=== PATIENT | female | born 1970 | race Caucasian/White ===

== ENCOUNTER → 2016-12-15 | Outpatient (CLI) | payer OTHER ==
--- NOTE | 2016-12-15 23:17 | MR ---
EXAMINATION TYPE: MR lumbar spine wo con DATE OF EXAM: 12/15/2016 COMPARISON: NONE HISTORY: Low back pain x3 months TECHNIQUE: Multiplanar, multisequence images of the lumbar spine were acquired. Lumbar vertebra have normal alignment. Disc spaces are fairly normal. There is slight narrowing and d ecreased signal in the L3-4 disc. There is no spinal stenosis. Lumbar nerve roots appear normal. The neural foramina appear widely patent. There is no compression fracture. Sacroiliac joints appear norm al. There is no paraspinal mass. IMPRESSION: Very minimal degenerative disc signal changes at L3-4. Otherwise negative exam.
== END | disposition home or self-care (01) ==
LOC: RADMRIMAIN 18:17
PROVIDERS: ATTEND Nurse Practitioner
DX: M51.16 Intervertebral disc disorders with radiculopathy, lumbar region (principal)
CPT/HCPCS: 72148

== ENCOUNTER → 2018-04-15 | Outpatient (CLI) | payer OTHER ==
--- NOTE | 2018-04-15 20:13 | CONS ---
CONSULTATION DATE OF SERVICE: 04/15/2018. 47-year-old lady has been evaluated in the Sleep Center for obstructive sleep apnea- hypopnea syndrome. HISTORY OF PRESENT ILLNESS/SLEEP WAKE EVALUATION: About 10 years ago the patient was diagnosed with obstructive sleep apnea-hypopnea syndrome but secondary to insurance issues at that time, she was not able to be treated with the CPAP therapy. SLEEP SCHEDULE: Presently, her sleep schedule from our 11 to 1:00 am until 9 or 10 am basically 7 days a week. FALLING ASLEEP: Usually she does not take her more than 30 minutes to fall asleep. No TV in bedroom. DURING SLEEP: She sleeps on the side position usually and in the chair. She snores very loudly with witnessed episodes of stopped breathing during sleep, awakenings with choking, nocturia, grinding, gasping for air. Patient wakes up from sleep up to 4 times with 4 episodes of nocturia. According to her , she has some movements with her lower jaw during the sleep. DURING THE DAY/SLEEP WAKE EVALUATION: In the morning she wakes up tired, falling asleep during the day, has episodes of irritability, depression, sexual dysfunction. [place] Sleepiness Scale significantly increased to 16. PAST MEDICAL HISTORY: Positive for hypertension, diabetes mellitus with peripheral neuropathy, seasonal allergy, possible depression, sinusitis, acid reflux, syndrome of her right low leg. PAST SURGICAL HISTORY: Past surgical is history of tubal ligation, surgery for varicose vein on the right leg. CURRENT MEDICATIONS: low flow oxygen, gabapentin, cetirizine, omega-3, omeprazole, MiraLAX, probiotics, fluticasone, lisinopril, hydrochlorothiazide, montelukast, Atorvastatin. SOCIAL HISTORY: Negative for smoking or using alcohol. FAMILY HISTORY: Hypertension, heart problems, hyperlipidemia, stroke, arthritis, asthma, sinus headaches, acid reflux, diabetes. REVIEW OF SYSTEMS: Multiple awakenings during the sleep. Sleepiness during the day and discomfort into her legs. PHYSICAL EXAM: lady without distress. BP 115/74, HR 81, RR 16, height 5 feet 0 inches, weight 192, body mass index 37.4, temperature 98.2, oxygen saturation on room air 96%, oropharynx extremely low position of soft palate, wide neck 16 inches in circumference. Abdomen slightly obese. Extremities: Neck Supple, no JVD. Thyroid is not palpable. LUNGS Clear to percussion and to auscultation. Good air exchange. No wheezing or rhonchi. HEART S1, S2 regular. No murmurs, gallops, or rubs. ABDOMEN: Obese. Soft and nontender. Bowel sounds are present. No organomegaly appreciated. IT SYSTEMS MANAGER Awake, alert, and oriented X3. Cranial nerves 2 to 7 intact. There is no fasciculation or atrophy. noted. No focal deficits observed. EXTREMITIES: Right leg wider than left leg with some changes of the whole right lower leg. IMPRESSION: 1. Loud snoring, witnessed episodes of stopped breathing during the sleep, low position of soft palate, wide neck, multiple awakenings from sleep with nocturia, excessive daytime sleepiness. 2. History of obstructive sleep apnea diagnosed in another institution about 10 years ago. Obstructive sleep apnea-hypopnea syndrome. 3. Obesity. BMI 37.4. 4. Diabetes mellitus. 5. Peripheral neuropathy. 6. Hypertension. 7. Seasonal allergy. 8. History of sinusitis. 9. Acid reflux. 10.Hyperlipidemia. 11.Status post tubal ligation. 12.Status post lithotripsy. 13.History of syndrome right leg status post surgical treatment. PLAN: 1. Polysomnography for evaluation of patient's breathing during sleep. 2. CPAP/BiPAP titration if sleep study confirms obstructive sleep apnea-hypopnea syndrome. 3. Preferable position during sleep on the side. 4. No driving if patient feels any sleepiness. 5. I will see patient for follow up visit to explain results of testing and following plan. Thank you very much for referring this patient for consultation. Zane Gonzalez MD, PhD, FAASM Diplomat of [employer] Air Reduction Equipment Operator of [facility] [place] MMODL / IJN: [id number] /
== END ==
LOC: SLEEP 14:05
PROVIDERS: ATTEND Internal Medicine
DX: G47.33 Obstructive sleep apnea (adult) (pediatric) (principal); E66.9 Obesity, unspecified; E11.9 Type 2 diabetes mellitus without complications; G62.9 Polyneuropathy, unspecified; I10 Essential (primary) hypertension; K21.9 Gastro-esophageal reflux disease without esophagitis; E78.5 Hyperlipidemia, unspecified; J30.2 Other seasonal allergic rhinitis; Z98.51 Tubal ligation status; Z98.890 Other specified postprocedural states; Z87.09 Personal history of other diseases of the respiratory system; Z99.89 Dependence on other enabling machines and devices; Z68.37 Body mass index [BMI] 37.0-37.9, adult
CPT/HCPCS: 99211

== ENCOUNTER → 2018-07-01 | Outpatient (CLI) | payer OTHER ==
--- NOTE | 2018-07-01 16:17 | PN ---
PROGRESS NOTE DATE OF SERVICE: 07/01/2018 This patient is a 48-year-old lady has been followed in Sleep Center for treatment of obstructive sleep apnea-hypopnea syndrome. Recently patient has been diagnosed with extremely severe obstructive sleep apnea, apnea-hypopnea index 94.1, with oxygen desaturation to 74%. With CPAP her respiration was controlled, and subsequently she received her CPAP unit. This is her first visit after receiving her CPAP unit. She feels better while using her CPAP, sleeping better and feeling better during the day. [place] Sleepiness Scale is 11. Amount of REM sleep was extremely high during the first night of CPAP titration, around 70%. I do not think that I ever saw such a high amount of REM sleep as a REM sleep rebound phenomenon. I checked the patient's CPAP unit. CPAP pressure is 11 cm of water. Usage is 29/30 nights; usage for more than 4 hours is 20/30 nights. Average usage is 5.7 hours. Leak is 42 L/minute, which is in the high range. Apnea-hypopnea index only 1.3, which is absolutely perfect. MEDICATIONS: 1. Tresiba. 2. Gabapentin. 3. Cetirizine. 4. Omeprazole. 5. MiraLAX. 6. Fluticasone. 7. Lisinopril. 8. Hydrochlorothiazide. 9. Montelukast. 10.Atorvastatin. 11.Fluoxetine. PHYSICAL EXAMINATION: GENERAL: A pleasant patient in no distress. VITAL SIGNS: BP 113/63, HR 85, RR 16, weight 192.6, temperature 98.0, oxygen saturation at room air 98%. HEENT: PERRLA, EOMI. Evaluation of oropharynx showed tongue protrudes midline. Low position of soft palate. Mallampati III. NECK: Supple. No JVD. Thyroid is not palpable. LUNGS: Clear to percussion and to auscultation. Good air exchange. No wheezing or rhonchi. HEART: S1, S2 regular. No murmurs, gallops or rubs. ABDOMEN: Obese. EXTREMITIES: No clubbing or cyanosis. SUPERINTENDENT CONCRETE MIXING PLANT: Awake, alert, and oriented X3. Cranial nerves 2 to 7 intact. There is no fasciculation or atrophy. noted. No focal deficits observed. IMPRESSION: 1. Extremely severe obstructive sleep apnea-hypopnea syndrome, fully under control with CPAP. Patient demonstrated good compliance with treatment, benefitting from treatment. 2. Obesity. 3. Diabetes mellitus with peripheral neuropathy. 4. Hypertension. 5. Seasonal allergies. 6. History of sinusitis. 7. Acid reflux. 8. Hyperlipidemia. 9. Status post tubal ligation. 10.Status post lithotripsy. 11.History of syndrome, status post surgical treatment of the right leg. PLAN: 1. Patient will continue to use her CPAP equipment every night. 2. Losing weight. 3. Sleep hygiene with regular time in bed for at least 8 hours. 4. No driving if feeling any sleepiness. 5. We will follow with prescription for all necessary CPAP supplies. 6. Follow-up visit in one year, or earlier if patient has any problems. Thank you very much for allowing me to participate in the management of your patient. Sincerely, Zane Gonzalez MD, PhD, FAASM Diplomat of [employer] Missile Technician of [facility] [place] MMODL / IJN: [id number] /
== END ==
LOC: SLEEP 14:13
PROVIDERS: ATTEND Internal Medicine
DX: G47.33 Obstructive sleep apnea (adult) (pediatric) (principal); E66.9 Obesity, unspecified; E11.42 Type 2 diabetes mellitus with diabetic polyneuropathy; I10 Essential (primary) hypertension; J30.2 Other seasonal allergic rhinitis; K21.9 Gastro-esophageal reflux disease without esophagitis; E78.5 Hyperlipidemia, unspecified; Z87.09 Personal history of other diseases of the respiratory system; Z98.890 Other specified postprocedural states; Z99.89 Dependence on other enabling machines and devices; Z98.51 Tubal ligation status; Z79.899 Other long term (current) drug therapy

== ENCOUNTER → 2019-01-27 | Outpatient (CLI) | payer OTHER ==
--- NOTE | 2019-01-27 13:52 | US ---
EXAMINATION TYPE: US carotid duplex BILAT DATE OF EXAM: 01/27/2019 COMPARISON: zUS 2007 CLINICAL HISTORY: R20.0 RT SIDED NUMBNESS,[id number] PROPTOSIS. EXAM MEASUREMENTS: RIGHT: Peak Systolic Velocity (PSV) cm/sec ----- Right CCA: 104.4 ----- Right ICA: 135.2 ----- Right ECA: 137.2 ICA/CCA ratio: 1.3 RIGHT: End Diastole cm/sec ----- Right CCA: 25.2 ----- Right ICA: 43.0 ----- Right ECA: 18.9 LEFT: Peak Systolic Velocity (PSV) cm/sec ----- Left CCA: 104.4 ----- Left ICA: 115.5 ----- Left ECA: 170.8 ICA/CCA ratio: 36.5 LEFT: End Diastole cm/sec ----- Left CCA: 34.7 ----- Left ICA: 11.6 ----- Left ECA: 1.1 VERTEBRALS (direction of flow): Right Vertebral: Antegrade Left Vertebral: Antegrade Rhythm: Normal Increased peak systolic velocity bilateral common carotid arteries. Grayscale images do not show sign ificant focal plaque at carotid bulb level bilaterally. IMPRESSION: Increased peak systolic velocities, suspect underlying pulmonary hypertension. Correlate clinically. No hemodynamic significant stenosis is clearly seen in either internal carotid artery. Criteria for Assigning % of Stenosis / Diameter reduction (Estimation based on the indirect measurements of the internal carotid artery velocities (ICA PSV). 1. Normal (no stenosis)=ICA PSV < 125 cm/s: ratio < 2.0: ICA EDV<40 cm/s. 2. Less than 50% stenosis=ICA PSV < 125 cm/s: ratio < 2.0: ICA EDV<40 cm/s. 3. 50 to 69% stenosis=ICA PSV of 125 to 230 cm/s: ration 2.0 ? 4.0: ICA EDV 40-100 cm/s. 4. Greater than 70% stenosis to near occlusion= ICA PSV > 230 cm/s: ratio > 4.0: ICA EDV > 100 cm/s. 5. Near occlusion= ICA PSV velocities may be low or undetectable: variable ratio and ICA EDV. 6. Total occlusion=unable to detect flow.
--- NOTE | 2019-01-27 15:12 | MR ---
PRE AND POSTCONTRAST ENHANCED MRI OF THE BRAIN and ORBITS: CLINICAL HISTORY: Proptosis, rt sided numbness CONTRAST: Gadavist 8.5ml. Multiplanar and multispin-echo imaging of the brain and orbits was performed both before and after th e administration of contrast. Origins of the examination are limited by patient motion during the cou rse of the study. The ventricles, basal cisterns and sulci overlying the cerebral convexities are within normal limits. There is no evidence for midline shift or mass effect. Acute intracranial hemorrhage or extra-axial collection is not evident. T2 FLAIR data set that demonstrates approximately 4 foci of increased signal within the deep white ma tter of the left cerebral hemisphere the largest noted within the left frontal verdugo radiata measuri ng 4.5 mm. One or 2 small foci of increased signal seen within the right cerebral hemisphere measurin g up to 3 mm. The findings are nonspecific and may reflect sequela of chronic migraine headaches, vas culitis, Lyme's disease as well as demyelinating disorder and chronic small vessel ischemic change. Following contrast administration, there is no evidence for pathologic enhancement or enhancing mass. The paranasal sinuses and mastoid air cells are well-aerated. The graft evaluation of the orbits demo nstrates bilateral proptosis. There is no evidence for thickening of the extraocular musculature. No intra or extraconal mass identified. Optic nerves are grossly unremarkable. No enhancing mass is dete cted. Nasal septum is deviated from left to right. IMPRESSION: 1. Nonspecific white matter lesions as discussed above. 2. Bilateral proptosis of uncertain etiology.
== END | disposition home or self-care (01) ==
LOC: RADUSWWP 12:22
PROVIDERS: ATTEND Psychiatry & Neurology Neurology
DX: H05.20 Unspecified exophthalmos (principal); R90.82 White matter disease, unspecified; R93.89 Abnormal findings on diagnostic imaging of other specified body structures; R20.0 Anesthesia of skin
CPT/HCPCS: 93880; 70543; 70553; A9585

== ENCOUNTER → 2019-11-28 | Outpatient (CLI) | payer OTHER ==
--- NOTE | 2019-11-28 11:30 | XR ---
EXAMINATION TYPE: XR bone length study DATE OF EXAM: 11/28/2019 COMPARISON: NONE HISTORY: limb length discrepency TECHNIQUE: Limb length measurements are submitted bilaterally. Multiple radiographs of the lower extr emities are obtained with a ruler. FINDINGS: Right femoral length is 39.25 cm while the left femoral length is 40.25 cm. Right tibial le ngth is 30 cm while the left tibial length is 31.5 cm. IMPRESSION: As above
== END | disposition home or self-care (01) ==
LOC: RADXRMAIN 10:23
PROVIDERS: ATTEND Podiatrist
DX: M21.70 Unequal limb length (acquired), unspecified site (principal)
CPT/HCPCS: 77073

== ENCOUNTER → 2020-02-28 | Outpatient (CLI) | payer OTHER | END | disposition home or self-care (01) | LOC: LABWHC1 08:43 | DX: H05.20 Unspecified exophthalmos (principal) | CPT/HCPCS: 36415; 84439; 84443; 84445; 84481 ==

== ENCOUNTER → 2021-04-04 | Outpatient (CLI) | payer OTHER ==
--- NOTE | 2021-04-05 09:13 | SFUN ---
SLEEP CENTER FOLLOW UP NOTE DATE OF SERVICE: 04/04/2021 This 50-year-old lady has been followed in Sleep Center for treatment of obstructive sleep apnea-hypopnea syndrome. Previously I saw the patient in June of 2018 and then, because of the COVID situation, the patient did not come for follow-up visit. She is on treatment with CPAP for extremely severe obstructive sleep apnea-hypopnea syndrome. Recently she did not use her CPAP machine because she needs to replace her CPAP supplies; bad condition of her chamber for humidification. [place] Sleepiness Scale today is increased to 13. I checked her CPAP unit. Pressure is 11 cm of water. The patient did not use it for the last year. MEDICATIONS: 1. Lipitor 40 mg once a day. 2. Ozempic 1.5 mg once a week. 3. Jardiance. 4. Lisinopril 40 mg once a day. 5. Claritin 10 mg once a day. 6. Prozac 40 mg once a day. 7. Actos. PHYSICAL EXAMINATION: GENERAL: Pleasant patient in no distress. VITAL SIGNS: BP 124/84, HR 67, RR 16, height 5 feet 0 inches, weight 154, body mass index , temperature 97.0. Oxygen saturation at room air 99%. HEENT: PERRLA, EOMI, evaluation of oropharynx showed tongue protrudes midline. Low position of soft palate; Mallampati III. NECK: Supple, no JVD. Thyroid is not palpable. LUNGS: Clear to percussion and to auscultation. Good air exchange. No wheezing or rhonchi. HEART: S1, S2 regular. No murmurs, gallops, or rubs. ABDOMEN: Soft and nontender. Bowel sounds are present. No organomegaly appreciated. EXTREMITIES: No clubbing or cyanosis. JOGGLE PRESS OPERATOR: Awake, alert, and oriented X3. Cranial nerves 2 to 7 intact. There is no fasciculation or atrophy. noted. No focal deficits observed. IMPRESSION: 1. Extremely severe obstructive sleep apnea-hypopnea syndrome. CPAP unit needs to have some replacement of the parts, including chamber for the water. 2. Diabetes mellitus with peripheral neuropathy. 3. Hypertension. 4. Seasonal allergies. 5. History of sinusitis. 6. Acid reflux. 7. Hyperlipidemia. 8. Status post tubal ligation. 9. Status post lithotripsy. PLAN: 1. Patient will continue to use PAP equipment every night for the whole night. 2. Sleep hygiene with regular time in bed for at least 7-1/2 to 8 hours. 3. Precautions related to driving. No driving if feeling sleepiness. 4. I will maintain all necessary prescription for PAP supplies including mask, tube, filters. 5. Watching weight. 6. Follow-up visit in 6 months or earlier if patient has any problems. 7. Prescription for all necessary supplies has been written and sent to [facility]. Thank you very much for allowing me to participate in the management of your patient. Sincerely, Zane Gonzalez MD, PhD, FAASM Diplomat of [place] [employer] Sleep Medicine Board of [place] [employer] Dictating Machine Transcriber of [facility] [place] MMODL / LESLIEN: [id number] /
== END | disposition home or self-care (01) ==
LOC: SLEEP 14:29
PROVIDERS: ATTEND Internal Medicine
DX: G47.33 Obstructive sleep apnea (adult) (pediatric) (principal); E11.42 Type 2 diabetes mellitus with diabetic polyneuropathy; J30.1 Allergic rhinitis due to pollen; K21.9 Gastro-esophageal reflux disease without esophagitis; E78.5 Hyperlipidemia, unspecified; Z98.51 Tubal ligation status

== ENCOUNTER → 2021-10-09 | Outpatient (CLI) | payer OTHER ==
--- NOTE | 2021-10-10 14:46 | SFUN ---
SLEEP CENTER FOLLOW UP NOTE DATE OF SERVICE: 10/09/2021 51-year-old lady has been followed in Sleep Center for treatment of obstructive sleep apnea-hypopnea syndrome. The patient continues to use her CPAP equipment getting her CPAP supplies in time. No problems with the machine. [place] Sleepiness Scale today although increased to 14. She feels sleepiness during the day. I checked CPAP unit. Pressure is 11 cm of water. Usage is 24/30 nights and 20/30 nights for more than 4 hours. Average 5.2 hours per night is borderline compliance. Leak is high 66 L/minute but apnea-hypopnea index is totally normal only 1.5. CURRENT MEDICATIONS: Aspirin 81 mg once a day, Jardiance 25 mg once a day, fluoxetine 40 mg once a day, Actos 45 mg once a day, Lipitor 80 mg once a day, Pepcid 20 mg twice a day, Bentyl 20 mg 4 times a day, gabapentin 400 mg 3 times a day, Ozempic weekly. PHYSICAL EXAMINATION: During physical exam patient in no distress BP 107/72, HR 66, RR 14, weight 164.0, which is 10 pounds more than during previous visit. Temperature 97.3, oxygen saturation at room air 99%. Height 5 feet 0 inches. Oropharynx: Low position of soft palate, Mallampati 3. NECK: Supple, no JVD. Thyroid is not palpable. LUNGS: Clear to percussion and to auscultation. Good air exchange. No wheezing or rhonchi. HEART: S1, S2 regular. No murmurs, gallops, or rubs. ABDOMEN: Soft and nontender. Bowel sounds are present. No organomegaly appreciated. EXTREMITIES: No clubbing or cyanosis. WEALTH MANAGEMENT MANAGER: Awake, alert, and oriented X3. Cranial nerves 2 to 7 intact. There is no fasciculation or atrophy. noted. No focal deficits observed. IMPRESSION: 1. Extremely severe obstructive sleep apnea-hypopnea syndrome. The patient demonstrated borderline compliance with treatment benefitting from treatment. Normal respiration on CPAP. 2. Hypertension. 3. Diabetes mellitus with peripheral neuropathy. 4. Seasonal allergy. 5. History of sinusitis. 6. Acid reflux. 7. Hyperlipidemia. 8. Status post tubal ligation. 9. Status post lithotripsy. PLAN: 1. Patient will continue to use PAP equipment every night for the whole night. 2. Sleep hygiene with regular time in bed for at least 7-1/2 to 8 hours. 3. Precautions related to driving. No driving if feeling sleepiness. 4. I will maintain all necessary prescription for PAP supplies including mask, tube, filters. 5. Watching weight. 6. Follow-up visit in 6 months or earlier if patient has any problems. Thank you very much for allowing me to participate in the management of your patient. Sincerely, Zane Gonzalez MD, PhD, FAASM Diplomat of [place] [employer] Sleep Medicine Board of [place] [employer] Medicine Service Operations Manager of [facility] [place] MMODL / IJN: [id number] /
== END | disposition home or self-care (01) ==
LOC: SLEEP 13:11
PROVIDERS: ATTEND Internal Medicine
DX: Z53.9 Procedure and treatment not carried out, unspecified reason (principal)

== ENCOUNTER 2022-09-15 12:39 | Observation (INO) | payer OTHER ==
[2022-09-15 12:55] LABS: Glucose,Whole Blood 146 mg/dL (70-110)
[2022-09-15] MEDS ORDERED: SODIUM CHLORIDE 0.9% 1,000 ML IV STA (12:55)
--- NOTE | 2022-09-15 13:05 | ED ---
General Adult HPI - General Chief complaint: Neuro Symptoms/Deficit Stated complaint: Facial Numbness Time Seen by Provider: 09/15/22 12:46 Source: patient, RN notes reviewed, old records reviewed Mode of arrival: ambulatory - History of Present Illness Initial comments: 52-year-old female presenting with right facial numbness which began at approximately 11:30 AM. She had previous history of Sheth's palsy. She denies limb weakness or numbness. She states that her had noted some slurred speech which began at 12:30, he states this was suicidal and is improving. I do not hear slurred speech on exam. No chest pain, no abdominal pain. - Related Data Allergies Allergy/AdvReac Type Severity Reaction Status Date / Time acetaminophen Allergy Rash/Hives Verified 09/15/22 12:44 [From Darvocet-N] morphine Allergy Rash/Hives Verified 09/15/22 12:44 propoxyphene Allergy Rash/Hives Verified 09/15/22 12:44 [From Darvocet-N] Review of Systems ROS Statement: Those systems with pertinent positive or pertinent negative responses have been documented in the HPI. ROS Other: All systems not noted in ROS Statement are negative. 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 History of Any Multi-Drug Resistant Organisms: None Reported Past Surgical History: No Surgical Hx Reported Past Psychological History: Depression Smoking Status: Never smoker Past Alcohol Use History: None Reported Past Drug Use History: None Reported General Exam General appearance: alert, in no apparent distress Head exam: Present: atraumatic, normocephalic Eye exam: Present: normal appearance, PERRL ENT exam: Present: normal exam Neck exam: Present: normal inspection. Absent: tenderness, meningismus Respiratory exam: Present: normal lung sounds bilaterally. Absent: respiratory distress, wheezes Cardiovascular Exam: Present: regular rate, normal rhythm GI/Abdominal exam: Present: soft. Absent: distended, tenderness, guarding Extremities exam: Present: normal capillary refill Neurological exam: Present: alert, oriented X3, motor sensory deficit (Right- sided facial numbness without weakness, speech is clear, no limb weakness, NIH of 1) Psychiatric exam: Present: normal affect, normal mood Skin exam: Present: warm, dry, intact. Absent: cyanosis, diaphoretic Course Vital Signs 09/15/22 09/15/22 12:41 13:10 Temperature 98.0 F Pulse Rate 75 79 Respiratory 16 18 Rate Blood Pressure 139/86 130/88 O2 Sat by Pulse 99 98 Oximetry EKG Findings - EKG Comments: EKG Findings:: Sinus rhythm rate of 71 OK interval 146, QRS duration 90, QTC [address] segment elevation. Medical Decision Making - Medical Decision Making Was pt. sent in by a medical professional or institution (, PA, ASSISTANT HEAD CASHIER, urgent care, hospital, or long-term...) When possible be specific @ -No Did you speak to anyone other than the patient for history (EMS, parent, family, police, friend...)? What history was obtained from this source @ -No Did you review nursing and triage notes (agree or disagree)? Why? @ -I reviewed and agree with nursing and triage notes Were old charts reviewed (outside hosp., previous admission, EMS record, old EKG, old radiological studies, urgent care reports/EKG's, long-term records)? Report findings @ -No old charts were reviewed Differential Diagnosis (chest pain, altered mental status, abdominal pain women, abdominal pain men, vaginal bleeding, weakness, fever, dyspnea, syncope, headache, dizziness, GI bleed, back pain, seizure, CVA, palpatations, mental h ealth, musculoskeletal)? @ Differential CVA Ischemic stroke, hemorrhagic stroke, brain tumor, atypical migraine, Wernicke's encephalopathy, seizure, multiple sclerosis, meningitis, encephalitis, hypoglycemia, Guillain-Armijo, electrolytes disturbance, myasthenia gravis.... This is not meant to be an all-inclusive list EKG interpreted by me (3pts min.). @ -As above X-rays interpreted by me (1pt min.). @ Chest x-ray no acute cardiopulmonary findings CT interpreted by me (1pt min.). @ CT CTA ordered in the emergency Department no acute findings U/S interpreted by me (1pt. min.). @ -None done What testing was considered but not performed or refused? (CT, X-rays, U/S, labs)? Why? @ -None What meds were considered but not given or refused? Why? @ -None Did you discuss the management of the patient with other professionals (profpat weberonals i.e. , PA, ASSISTANT HEAD CASHIER, lab, RT, psych nurse, social work instructor, nutritional assistant, teacher, aoc director combat plans officer, pillowcase sewer)? Give summary @ -, Sheet Was smoking cessation discussed for >3mins.? @ -No Was critical care preformed (if so, how long)? @ -No Were there social determinants of health that impacted care today? How? (Homelessness, low income, unemployed, alcoholism, drug addiction, trans portation, low edu. Level, literacy, decrease access to med. care, fpc, rehab)? @ -No Was there de-escalation of care discussed even if they declined (Discuss DNR or withdrawal of care, Hospice)? DNR status @ -No What co-morbidities impacted this encounter? (DM, HTN, Smoking, COPD, CAD, Cancer, CVA, ARF, Chemo, Hep., AIDS, mental health diagnosis, sleep apnea, morbid obesity)? @ -[HTN Was patient admitted / discharged? Hospital course, mention meds given and route, prescriptions, significant lab abnormalities, going to OR and other pertinent info. @ -[52-year-old female with right-sided facial numbness and reported slurred speech which is resolved at the time my evaluation, states is improving. This may be TIA or may reflect a Sheth's palsy. She has no limb weakness. Blood pressure is normal. Workup in the emergency Department is unremarkable including CT without contrast, CT angiography. I did discuss case with the on- call stroke intervention physician who does recommend aspirin at this time. Patient not a TPA candidate given improving symptoms and minimal NIH. Undiagnosed new problem with uncertain prognosis? @ -No Drug Therapy requiring intensive monitoring for toxicity (Heparin, Nitro, Insulin, Cardizem)? @ -No Were any procedures done? @ -No Diagnosis/symptom? @ Right facial numbness, CVA Acute, or Chronic, or Acute on Chronic? @ Acute Uncomplicated (without systemic symptoms) or Complicated (systemic symptoms)? @ Complicated Side effects of treatment? @ -No Exacerbation, Progression, or Severe Exacerbation? @ -No Poses a threat to life or bodily function? How? (Chest pain, [place], [place], pneumonia, PE, COPD, DKA, ARF, appy, cholecystitis, CVA, Diverticulitis, Homicidal, Suicidal, threat to staff... and all critical care pts) @ -Yes, CVA, progressive neurologic dysfunction - Lab Data Result diagrams: 09/15/22 12:57 09/15/22 12:57 Lab Results 09/15/22 09/15/22 09/15/22 Range/Units 12:53 12:57 12:57 WBC 5.7 (3.8-10.6) k/uL RBC 4.76 (3.80-5.40) m/uL Hgb 14.4 (11.4-16.0) gm/dL Hct 42.3 (34.0-46.0) % MCV 88.8 (80.0-100.0) fL MCH 30.3 (25.0-35.0) pg MCHC 34.1 (31.0-37.0) g/dL RDW 13.3 (11.5-15.5) % Plt Count 202 (150-450) k/uL MPV 7.5 Neutrophils % 60 % Lymphocytes % 31 % Monocytes % 6 % Eosinophils % 2 % Basophils % 0 % Neutrophils # 3.4 (1.3-7.7) k/uL Lymphocytes # 1.8 (1.0-4.8) k/uL Monocytes # 0.3 (0-1.0) k/uL Eosinophils # 0.1 (0-0.7) k/uL Basophils # 0.0 (0-0.2) k/uL PT 9.9 (9.0-12.0) sec INR 0.9 (<1.2) APTT 23.7 (22.0-30.0) sec Sodium (137-145) mmol/L Potassium (3.5-5.1) mmol/L Chloride (98-107) mmol/L Carbon Dioxide (22-30) mmol/L Anion Gap mmol/L BUN (7-17) mg/dL Creatinine (0.52-1.04) mg/dL Est GFR (CKD-EPI)AfAm (>60 ml/min/1.73 sqM) Est GFR (CKD-EPI)NonAf (>60 ml/min/1.73 sqM) Glucose (74-99) mg/dL POC Glucose (mg/dL) 146 H (70-110) mg/dL POC Glu [employer] ID Elizabeth Ferguson Calcium (8.4-10.2) mg/dL Total Bilirubin (0.2-1.3) mg/dL AST (14-36) U/L ALT (4-34) U/L Alkaline Phosphatase (38-126) U/L Total Protein (6.3-8.2) g/dL Albumin (3.5-5.0) g/dL 09/15/22 Range/Units 12:57 WBC (3.8-10.6) k/uL RBC (3.80-5.40) m/uL Hgb (11.4-16.0) gm/dL Hct (34.0-46.0) % MCV (80.0-100.0) fL MCH (25.0-35.0) pg MCHC (31.0-37.0) g/dL RDW (11.5-15.5) % Plt Count (150-450) k/uL MPV Neutrophils % % Lymphocytes % % Monocytes % % Eosinophils % % Basophils % % Neutrophils # (1.3-7.7) k/uL Lymphocytes # (1.0-4.8) k/uL Monocytes # (0-1.0) k/uL Eosinophils # (0-0.7) k/uL Basophils # (0-0.2) k/uL PT (9.0-12.0) sec INR (<1.2) APTT (22.0-30.0) sec Sodium 141 (137-145) mmol/L Potassium 3.9 (3.5-5.1) mmol/L Chloride 107 (98-107) mmol/L Carbon Dioxide 26 (22-30) mmol/L Anion Gap 8 mmol/L BUN 12 (7-17) mg/dL Creatinine 0.68 (0.52-1.04) mg/dL Est GFR (CKD-EPI)AfAm >90 (>60 ml/min/1.73 sqM) Est GFR (CKD-EPI)NonAf >90 (>60 ml/min/1.73 sqM) Glucose 119 H (74-99) mg/dL POC Glucose (mg/dL) (70-110) mg/dL POC Glu [employer] ID Calcium 9.4 (8.4-10.2) mg/dL Total Bilirubin 0.7 (0.2-1.3) mg/dL AST 21 (14-36) U/L ALT 22 (4-34) U/L Alkaline Phosphatase 79 (38-126) U/L Total Protein 6.5 (6.3-8.2) g/dL Albumin 4.0 (3.5-5.0) g/dL Disposition Clinical Impression: Cerebrovascular accident (CVA) Disposition: ADMITTED IP TO THIS HOSP Condition: Stable Is patient prescribed a controlled substance at d/c from ED?: No Referrals: Jerome Monroe MD [Primary Care Provider] - 1-2 days Time of Disposition: 14:04
--- NOTE | 2022-09-15 13:17 | CT ---
EXAMINATION TYPE: CT brain wo con for TPA CT DLP: 1103.6 mGycm, Automated exposure control for dose reduction was used. DATE OF EXAM: 09/15/2022 1:09 PM COMPARISON: MRI brain 01/27/2019 CLINICAL INDICATION:Female, 52 years old with history of Neuro deficit, acute, stroke suspected, Rt s marli numbness TECHNIQUE: Brain: Multiple axial CT images of the brain were obtained without IV contrast. Coronal and sagittal reformats reviewed. FINDINGS: Brain: Extra-axial spaces: No abnormal extra-axial fluid collections. Ventricular system: Within normal limits Cerebral parenchyma: No acute intraparenchymal hemorrhage or mass effect. The blackwood-white junction is well differentiated. Cerebellum: Unremarkable. Mass effect: No evidence of midline shift. Intracranial vasculature: unremarkable Soft tissues: Normal. Calvarium/osseous structures: No depressed skull fracture. Paranasal sinuses and mastoid air cells: Clear Visualized orbits: Bilateral aphakia. Bilateral proptosis redemonstrated. IMPRESSION: 1. No acute intracranial process. 2. Bilateral proptosis redemonstrated.
[2022-09-15 13:18] LABS: Basophils % (A) 0 %; Eosinophils # (A) 0.1 k/uL (0-0.7); Eosinophils % (A) 2 %; HCT 42.3 % (34.0-46.0); HGB 14.4 gm/dL (11.4-16.0); Lymphocytes # (A) 1.8 k/uL (1.0-4.8); Lymphocytes % (A) 31 %; MCH 30.3 pg (25.0-35.0); MCHC 34.1 g/dL (31.0-37.0); MCV 88.8 fL (80.0-100.0); Mean Platelet Volume 7.5; Monocytes # (A) 0.3 k/uL (0-1.0); Monocytes % (A) 6 %; Neutrophils # (A) 3.4 k/uL (1.3-7.7); Neutrophils % (A) 60 %; Platelet Count 202 k/uL (150-450); RBC 4.76 m/uL (3.80-5.40); RDW 13.3 % (11.5-15.5); WBC 5.7 k/uL (3.8-10.6)
[2022-09-15 13:24] LABS: ALT 22 U/L (4-34); AST 21 U/L (14-36); African American GFR (CKD) >90 (>60 ml/min/1.73 sqM); Alkaline Phosphatase 79 U/L (38-126); Anion Gap 8 mmol/L; Blood Urea Nitrogen 12 mg/dL (7-17); Calcium 9.4 mg/dL (8.4-10.2); Carbon Dioxide 26 mmol/L (22-30); Chloride 107 mmol/L (98-107); Glucose 119 mg/dL (74-99); Non-African American GFR(CKD) >90 (>60 ml/min/1.73 sqM); Potassium 3.9 mmol/L (3.5-5.1); Sodium 141 mmol/L (137-145); Total Bilirubin 0.7 mg/dL (0.2-1.3); Total Protein 6.5 g/dL (6.3-8.2)
--- NOTE | 2022-09-15 13:34 | CT ---
EXAMINATION TYPE: CT angio head neck CT DLP: 511 mGycm, Automated exposure control for dose reduction was used. DATE OF EXAM: 09/15/2022 1:26 PM COMPARISON: CT brain of the same date. CLINICAL INDICATION:Female, 52 years old with history of Neuro deficit, acute, stroke suspected; PHH, Rt side numbness TECHNIQUE: Axially acquired helical CT angiogram of the head and neck was obtained with contrast util izing 65 cc of Isovue-370 administered intravenously. Axial images are supplemented with 3D reconstru ctions which were post-processed at an independent workstation. NASCET criteria used. FINDINGS: CTA HEAD: No evidence of acute intracranial hemorrhage, mass effect, or midline shift. The ventricles, sulci, a nd cisterns are unremarkable. The visualized portions of the internal carotid arteries, middle cerebral arteries, anterior cerebral arteries, and posterior cerebral arteries are patent. The basilar and vertebral arteries are patent. CTA NECK: Right Carotid System: The common carotid artery and external carotid artery are patent. The carotid bifurcation demonstrate s no evidence of hemodynamically significant stenosis. The remaining portions of the internal carotid artery demonstrate normal size without significant narrowing. Left Carotid System: The common carotid artery and external carotid artery are patent. The carotid bifurcation demonstrate s no evidence of hemodynamically significant stenosis. The remaining portions of the internal carotid artery demonstrate normal size without significant narrowing. Vertebral arteries are patent without evidence hemodynamically significant stenosis. The left vertebr al artery is dominant. There is a bovine aortic arch. The origins of the great vessels are patent. No evidence of hemodynami stan significant stenosis. IMPRESSION: 1. No evidence of dissection of the cervical internal carotid arteries or vertebral arteries or any e vidence of significant stenosis at the carotid bifurcations. 2. No evidence of high-grade stenosis or intracranial aneurysm.
[2022-09-15] MEDS ORDERED: ASPIRIN 325 MG TAB PO STA (13:39)
--- NOTE | 2022-09-15 13:40 | XR ---
EXAMINATION TYPE: XR chest 2V DATE OF EXAM: 09/15/2022 COMPARISON: NONE HISTORY: Altered mental status and weakness. TECHNIQUE: Frontal and lateral views of the chest are obtained. FINDINGS: There is no suspicious focal air space opacity, pleural effusion, or pneumothorax seen. T he cardiac silhouette size is within normal limits. The osseous structures are intact. Overlying EK G leads are present. IMPRESSION: No acute process.
[2022-09-15 13:45] LABS: INR 0.9 (<1.2); Partial Thromboplastin Time 23.7 sec (22.0-30.0); Prothrombin Time 9.9 sec (9.0-12.0)
[2022-09-15] MEDS ORDERED: SODIUM CHLORIDE 0.9% 1,000 ML IV SCH (14:00)
[2022-09-15] MEDS ORDERED: DEXTROSE 50% SYRINGE 50 ML IVP PRN ×2 (15:12)
[2022-09-15] MEDS: GABAPENTIN 400 MG CAP PO SCH ×2 (16:22→22:36)
--- NOTE | 2022-09-15 19:04 | P.CNNES ---
History of Present Illness Consult date: 09/15/22 Requesting physician: Jenaro Bach Reason for Consult: CVA History of Present Illness: Patient is a 52-year-old left-handed female with history of hypertension, diabetes, came to the hospital today at 12:39 PM for possible stroke/TIA. Patient states that at 11:30 AM she was eating her lunch when she noticed num bness of the right side of the face, pointing to the cheeks from below the eye to the jaw. The numbness extended to the right shoulder but not beyond involving the arm or the leg. She also noticed slurred speech when she was talking to her . She got concerned and came to the hospital. Vital signs on arrival blood pressure 139/86, pulse rate 75 temperature 98.0. Blood test shows normal CBC, PT/PTT, normal CMP. CT head revealed no acute process. Bilateral proptosis redemonstrated. I personally reviewed CT head, given the findings. EKG and chest x-ray are normal. CTA of head and neck revealed no evidence of dissection of the cervical internal carotid arteries or vertebral arteries or any evidence of significant stenosis at the carotid bifurcation. No evidence of high-grade stenosis or intracranial or aneurysm. In the ED, patient was considered for TPA, but not given because of rapidly improving symptoms and minimal deficits. The risks outweigh the benefits. Patient states that her speech difficulty lasted for couple hours, and the numbness is also almost gone, with some paresthesias involving the right cheek region. Patient has history of diabetes since 2005, which she believes is controlled. She states her last A1c was 7.3 checked at [facility]. She has hypertension, never smoked, does not drink alcohol. She admits to having diabetic peripheral neuropathy involving her hands and feet. Patient states that about 5 years ago, she had a TIA, which also affected her right side, with no residual deficits. Home medications include Actos, Zestoretic, gabapentin 400 mg 3 times a day, Prozac 40 mg, Lipitor 40 mg, aspirin 81 mg, meloxicam 50 mg, omeprazole 20 mg, vitamin D, ferrous sulfate, Pepcid 20 mg twice a day, amlodipine 2.5 mg, insulin and Ozempic and Jardiance. Review of Systems Constitutional: Denies chills, Denies fever Eyes: denies blurred vision, denies diplopia, denies pain Ears: deny: decreased hearing, ear discharge Ears, nose, mouth and throat: Denies headache, Denies sore throat Cardiovascular: Denies chest pain, Denies shortness of breath Respiratory: Denies cough, Denies excessive sputum, Denies wheezing Gastrointestinal: Denies abdominal pain, Denies diarrhea, Denies nausea, Denies vomiting Genitourinary: Denies dysuria, Denies hematuria Musculoskeletal: Denies muscle weakness, Denies myalgias Integumentary: Denies pruritus, Denies rash Neurological: Reports as per HPI Psychiatric: Denies anxiety, Denies depression Hematologic/Lymphatic: Denies easy bleeding, Denies easy bruising 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 History of Any Multi-Drug Resistant Organisms: None Reported Past Surgical History: No Surgical Hx Reported Past Psychological History: Depression Smoking Status: Never smoker Past Alcohol Use History: None Reported Past Drug Use History: None Reported - Past Family History Father Family Medical History: COPD Mother Family Medical History: Diabetes Mellitus Medications and Allergies Home Medications Medication Instructions Recorded Confirmed Type Cholecalciferol [Vitamin D3 (25 50 mcg PO DAILY 09/15/22 09/15/22 History Mcg = 1000 Iu)] Empagliflozin [Jardiance] 25 mg PO DAILY 09/15/22 09/15/22 History FLUoxetine HCL [PROzac] 40 mg PO DAILY 09/15/22 09/15/22 History Famotidine [Pepcid] 20 mg PO BID 09/15/22 09/15/22 History Ferrous Sulfate [Iron] 325 mg PO HS 09/15/22 09/15/22 History Gabapentin [Neurontin] 400 mg PO TID 09/15/22 09/15/22 History Insulin Degludec [Tresiba 50 units SQ DAILY 09/15/22 09/15/22 History Flextouch U-100 Pen] Lisinopril-Hctz 20-12.5 mg 1 tab PO DAILY 09/15/22 09/15/22 History [Zestoretic 20-12.5] Meloxicam [Mobic] 15 mg PO DAILY@1500 09/15/22 09/15/22 History Omeprazole [PriLOSEC] 20 mg PO BID 09/15/22 09/15/22 History Pioglitazone [Actos] 45 mg PO DAILY 09/15/22 09/15/22 History Semaglutide [Ozempic] 2 mg SQ TH 09/15/22 09/15/22 History amLODIPine [Norvasc] 2.5 mg PO HS 09/15/22 09/15/22 History Aspirin EC [Ecotrin Low Dose] 81 mg PO DAILY #21 tab 09/16/22 Rx Atorvastatin [Lipitor] 40 mg PO HS #30 tab 09/16/22 Rx Clopidogrel [Plavix] 75 mg PO DAILY #30 tab 09/16/22 Rx Allergies Allergy/AdvReac Type Severity Reaction Status Date / Time morphine Allergy Rash/Hives Verified 09/15/22 14:08 propoxyphene Allergy Rash/Hives Verified 09/15/22 14:08 [From MayraTeodoro] Physical Examination - Vital Signs Vital Signs: Vital Signs Temp Pulse Resp BP Pulse Ox 09/15/22 14:18 62 18 137/95 100 09/15/22 13:10 79 18 130/88 98 09/15/22 12:41 98.0 F 75 16 139/86 99 Intake and Output 09/15/22 09/15/22 09/15/22 06:59 14:59 22:59 Other: Weight 79.379 kg Patient is a middle aged female, in no acute distress. Patient is alert awake oriented to time place and person. Speech and language functions are normal. Patient can name and repeat very well. No aphasia or dysarthria. Attention, concentration and fund of knowledge is adequate. On cranial nerve examination, pupils are equal, round and reacting to light, visual garrett are full on confrontation, with no neglect on double simultaneous stimulation. Extraocular muscles are intact with no nystagmus. Face is symmetric, tongue protrudes to the midline. Palatal elevation and sensation normal, hearing and shoulder shrug normal, facial sensation normal. On muscle strength testing, there is no pronator drift and the strength is n ormal in arms and legs distally and proximally. Deep tendon reflexes are symmetric biceps 1, brachioradialis 1, knees 2, ankles 1 plantars downgoing bilaterally. Sensory to touch is equal with no neglect on double simultaneous stimulation. Cerebellar function showed no ataxia for [id number] testing. No dysdiadochokinesia. No ataxia for [id number] testing on either side. Tone and bulk of muscles normal. Gait deferred.. On general examination, there is no carotid bruit or murmur, S1-S2 audible. Chest is clear on consultation. Abdomen is soft nontender. No organomegaly, bowel sounds present. Peripheral pulses are present. No edema. Results - Laboratory Findings CBC and BMP: 09/15/22 12:57 09/15/22 12:57 Abnormal Lab Findings: Abnormal Labs 09/15/22 09/15/22 12:53 12:57 Glucose 119 H POC Glucose (mg/dL) 146 H Assessment and Plan Assessment: * Probable TIA manifesting with transient slurred speech and numbness of the right lower facial region extending to the shoulder. Symptoms have mostly resolved, except for minimal right facial paresthesia. Patient was not a candidate for TPA due to very low NIH stroke scale and rapidly improving symptoms. * Hypertension * Diabetes * Previous history of possible TIA * Diabetic peripheral neuropathy * Possible history of TIA in the past. Plan: * Patient's symptoms have mostly resolved. Current NIH stroke scale is 0. * CTA of head and neck showed no acute process. * 2-D echo with bubble study, rule out PFO. * No indication for MRI because of very low yield. * Agree with checking fasting a.m. lipid panel, hemoglobin A1c, B12. * Patient was taking aspirin 81 mg daily. Patient will be started on Plavix 75 mg daily. Patient to be maintained on DAP for 21 days, then stop aspirin and continue Plavix. * Optimize control of all vascular risk factors. * Telemetry monitoring, rule out arrhythmia. * Neurology will follow. Thank you for the consult.
[2022-09-15] MEDS: CLOPIDOGREL 75 MG TAB PO SCH (22:36)
[2022-09-15] MEDS: FAMOTIDINE 20 MG TAB PO SCH (22:36)
[2022-09-15] MEDS: amLODIPine 2.5 MG TAB PO SCH (22:36)
[2022-09-15] MEDS: HEPARIN SODIUM,PORCINE/PF 5,000 UNIT/0.5 ML SYRINGE SQ SCH (22:36)
--- NOTE | 2022-09-15 23:27 | P.HPIM ---
History of Present Illness This is a pleasant 52 years old female with past medical history of diabetes and hypertension and depression, also she has history of thyro-ocular disease/gravs's disease as she describes that she follows with [facility] but currently she is not on treatment. 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 Patient denies headache dizziness weakness or numbness. Her slurred speech has resolved now she still feels little numbness in her right cheek. She denies chest pain or dyspnea. No abdominal pain vomiting or diarrhea. No urinary complaints. She denies smoking alcohol or illicit tracts. Hemodynamically stable Including CBC, BMP, liver enzymes. Glucose slightly elevated. Chest x-ray: No acute process CTA of the head and neck: No evidence of dissection of the cervical internal car otid artery and vertebral arteries, no stenosis CT of the brain: No acute process. Bilateral proptosis We checked hemoglobin A1c and it is elevated 7.0%. TSH is normal Review of Systems Review of systems CONSTITUTIONAL: No fever, no malaise, no fatigue. HEENT: No recent visual problems or hearing problems. Denied any sore throat. CARDIOVASCULAR: No orthopnea, PND, no palpitations, no syncope. PULMONARY: No shortness of breath, no cough, no hemoptysis. GASTROINTESTINAL: No diarrhea, no nausea, no vomiting, no abdominal pain. Normoactive bowel sounds. NEUROLOGICAL: No headaches, no weakness HEMATOLOGICAL: Denies any bleeding or petechiae. GENITOURINARY: Denies any burning micturition, frequency, or urgency. MUSCULOSKELETAL/RHEUMATOLOGICAL: Denies any joint pain, swelling, or any muscle pain. ENDOCRINE: Denies any polyuria or polydipsia. 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 History of Any Multi-Drug Resistant Organisms: None Reported Past Surgical History: No Surgical Hx Reported Past Psychological History: Depression Smoking Status: Never smoker Past Alcohol Use History: None Reported Past Drug Use History: None Reported - Past Family History Father Family Medical History: COPD Mother Family Medical History: Diabetes Mellitus Medications and Allergies Home Medications Medication Instructions Recorded Confirmed Type Aspirin EC [Ecotrin Low Dose] 81 mg PO DAILY 05/01/23 05/01/23 History Atorvastatin [Lipitor] 40 mg PO HS 09/15/22 09/15/22 History Cholecalciferol [Vitamin D3 (25 50 mcg PO DAILY 09/15/22 09/15/22 History Mcg = 1000 Iu)] Empagliflozin [Jardiance] 25 mg PO DAILY 09/15/22 09/15/22 History FLUoxetine HCL [PROzac] 40 mg PO DAILY 09/15/22 09/15/22 History Famotidine [Pepcid] 20 mg PO BID 09/15/22 09/15/22 History Ferrous Sulfate [Iron] 325 mg PO HS 09/15/22 09/15/22 History Gabapentin [Neurontin] 400 mg PO TID 09/15/22 09/15/22 History Insulin Degludec [Tresiba 50 units SQ DAILY 09/15/22 09/15/22 History Flextouch U-100 Pen] Lisinopril-Hctz 20-12.5 mg 1 tab PO DAILY 09/15/22 09/15/22 History [Zestoretic 20-12.5] Meloxicam [Mobic] 15 mg PO DAILY@1500 09/15/22 09/15/22 History Omeprazole [PriLOSEC] 20 mg PO BID 09/15/22 09/15/22 History Pioglitazone [Actos] 45 mg PO DAILY 09/15/22 09/15/22 History Semaglutide [Ozempic] 2 mg SQ TH 09/15/22 09/15/22 History amLODIPine [Norvasc] 2.5 mg PO HS 09/15/22 09/15/22 History Allergies Allergy/AdvReac Type Severity Reaction Status Date / Time morphine Allergy Rash/Hives Verified 09/15/22 14:08 propoxyphene Allergy Rash/Hives Verified 09/15/22 14:08 [From MayraTeodoro] Physical Exam Vitals: Vital Signs Temp Pulse Resp BP Pulse Ox 09/15/22 14:18 62 18 137/95 100 09/15/22 13:10 79 18 130/88 98 09/15/22 12:41 98.0 F 75 16 139/86 99 Intake and Output 09/15/22 09/15/22 09/15/22 06:59 14:59 22:59 Other: Weight 79.379 kg GENERAL: The patient is alert and oriented x3, not in any acute distress. Well developed, well nourished. HEENT: Pupils are round and equally reacting to light. EOMI. No scleral icterus. No conjunctival pallor. Normocephalic, atraumatic. No pharyngeal erythema. No thyromegaly. CARDIOVASCULAR: S1 and S2 present. No murmurs, rubs, or gallops. PULMONARY: Chest is clear to auscultation, no wheezing or crackles. ABDOMEN: Soft, nontender, nondistended, normoactive bowel sounds. No palpable organomegaly. MUSCULOSKELETAL: No joint swelling or deformity. EXTREMITIES: No cyanosis, clubbing, or pedal edema. NEUROLOGICAL: Gross neurological examination did not reveal any focal deficits. SKIN: No rashes. no petechiae. Results CBC & Chem 7: 09/15/22 12:57 09/15/22 12:57 Labs: Abnormal Lab Results - Last 24 Hours (Table) 09/15/22 09/15/22 Range/Units 12:53 12:57 Glucose 119 H (74-99) mg/dL POC Glucose (mg/dL) 146 H (70-110) mg/dL Assessment and Plan Assessment: Right face numbness, rule out stroke Diabetes mellitus Hypertension History of Sheth's palsy History of proptosis and Graves' disease that she follows outpatient with [facility] Plan: Continue with aspirin neurology consult Labs and medication were reviewed.. Continue same treatment. Continue with symptomatic treatment. Resume home medication. Monitor labs and vitals. DVT and GI prophylaxis. Further recommendations as per clinical course of the patient DVT prophylaxis: Subcutaneous heparin GI Prophylaxis: Pepcid PT/OT: Pending Prognosis is guarded
[2022-09-16 00:21] VITALS: RESP 18
[2022-09-16 06:15] LABS: Glucose,Whole Blood 102 mg/dL (70-110)
[2022-09-16] MEDS ORDERED: INSULIN DETEMIR (LEVEMIR) 100 UNIT/ML SYR SQ SCH (07:00)
[2022-09-16] MEDS: GABAPENTIN 400 MG CAP PO SCH ×3 (08:47→20:57)
[2022-09-16] MEDS: CLOPIDOGREL 75 MG TAB PO SCH (08:47)
[2022-09-16] MEDS: FAMOTIDINE 20 MG TAB PO SCH ×2 (08:47→20:57)
[2022-09-16] MEDS: HEPARIN SODIUM,PORCINE/PF 5,000 UNIT/0.5 ML SYRINGE SQ SCH ×2 (08:48→20:58)
[2022-09-16] MEDS ORDERED: ATORVASTATIN 40 MG TAB PO SCH (09:00)
[2022-09-16] MEDS ORDERED: PIOGLITAZONE 45 MG TAB PO SCH (09:00)
[2022-09-16] MEDS ORDERED: LISINOPRIL-HCTZ 20-12.5 MG 1 EACH TAB PO SCH (09:00)
[2022-09-16] MEDS ORDERED: FLUoxetine HCL 20 MG CAP PO SCH (09:00)
[2022-09-16] MEDS ORDERED: DAPAGLIFLOZIN PROPANEDIOL 5 MG TABLET PO SCH (09:00)
[2022-09-16] MEDS ORDERED: CHOLECALCIFEROL 25 MCG (1000 IU) TABLET PO SCH (09:00)
[2022-09-16] MEDS ORDERED: ASPIRIN 325 MG TAB PO SCH (09:00)
[2022-09-16] MEDS ORDERED: ASPIRIN 81 MG PO SCH (09:00)
[2022-09-16 11:29] LABS: Glucose,Whole Blood 87 mg/dL (70-110)
--- NOTE | 2022-09-16 15:11 | P.PN ---
Subjective Progress Note Date: 09/16/22 First follow-up: Patient is laying comfortably in the bed. All symptoms have resolved. No new focal symptoms. Objective - Vital Signs Vital signs: Vital Signs Temp 97.8 F 09/16/22 08:43 Pulse 82 09/16/22 09:12 Resp 18 09/16/22 09:12 BP 123/78 09/16/22 08:43 Pulse Ox 95 09/16/22 10:04 FiO2 Intake & Output 09/15/22 09/16/22 09/16/22 18:59 06:59 18:59 Intake Total 180 Balance 180 Weight 79.379 kg Intake: Oral 180 Other: Voiding Method Toilet Toilet # Voids 1 - Exam Examination is normal, nonfocal. NIH stroke scale is 0. - Labs CBC & Chem 7: 09/15/22 12:57 09/15/22 12:57 Labs: Abnormal Lab Results - Last 24 Hours (Table) 09/15/22 09/15/22 09/15/22 Range/Units 12:53 12:57 12:57 Glucose 119 H (74-99) mg/dL POC Glucose (mg/dL) 146 H (70-110) mg/dL Hemoglobin A1c 7.0 H (0.0-6.0) % Assessment and Plan Assessment: * Probable TIA manifesting with transient slurred speech and numbness of the right lower facial region extending to the shoulder. Symptoms have mostly resolved. Patient was not a candidate for TPA due to very low NIH stroke scale and rapidly improving symptoms. * Hypertension * Diabetes * Diabetic peripheral neuropathy * Possible history of TIA in the past. Plan: * Patient's symptoms have resolved. Current NIH stroke scale is 0. * CTA of head and neck showed no acute process. * 2-D echo with bubble study, still pending, not done yet. * No indication for MRI because symptoms have resolved and very low yield. * Fasting a.m. lipid panel with cholesterol 201, LDL 113, HDL 50, triglycerides 187. Continue Lipitor. Suggest increasing dose to 80 mg to target LDL < 70. * Hemoglobin A1c 7.0, which is controlled. B12 451, folate 22.6 and TSH 1.14. * Patient was taking aspirin 81 mg daily. Patient will be started on Plavix 75 mg daily. Patient to be maintained on DAP for 21 days, then stop aspirin and continue Plavix. * Optimize control of all vascular risk factors. * Telemetry monitoring showing sinus rhythm in the 80s. No other arrhythmia. * Neurologically clear, if echo comes back normal. Discussed with primary physician. Addendum 09/17/2022: 2-D echo revealed normal left ventricular size and systolic function. EF is 55- 60%. Bubble study was negative for any shunting. Left atrium is mildly dilated. Recommend patient follow up with neurologist as an outpatient. May consider placement of a 30 day event monitoring as an outpatient. Discussed with PCP. Called patient's home, two different times and patient was not available. Spoke to her , informed will call back in am. 09/18/2022: Called patient home and spoke to her , as patient again was not available (they both share a single cell phone). Informed her to have a 30 day event monitoring performed as out patient rule out Atrial Fibrillation. Also called Dr. Yeimy Polanco office (her PCP) and relayed this information to the office staff. Patient has an appointment with Madeline Henderson NP, tomorrow, who would be able to arrange the event monitoring.
[2022-09-16 15:29] LABS: Chol/HDL Ratio 3.99 Ratio; LDL Cholesterol,Calculated 113.2 mg/dL (0.0-131.0)
[2022-09-16 16:33] LABS: Glucose,Whole Blood 85 mg/dL (70-110)
--- NOTE | 2022-09-16 19:01 | CA ---
Transthoracic Echo Report Name: Carmina Covarrubias Age: 52 Gender: F : 1970 Exam Date: 09/16/2022 13:10 Exam Location: [facility] Ht (in): 59 Wt (lb): 175 Ordering Physician: Ml Alegre MD Attending/Referring Phys: Director Of Land Acquisition [place] RDCS Procedure CPT: Indications: tia Cardiac Hx: Technical Quality: Fair Contrast 1: Total Dose (mL): Contrast 2: Total Dose (mL): MEASUREMENTS (Male / Female) Normal Values 2D ECHO LV Diastolic Diameter PLAX 4.4 cm 4.2 - 5.9 / 3.9 - 5.3 cm LV Systolic Diameter PLAX 2.5 cm LV Fractional Shortening PLAX 42.1 % IVS Diastolic Thickness 0.7 cm 0.6 - 1.0 / 0.6 - 0.9 cm IVS Systolic Thickness 1.5 cm LVPW Diastolic Thickness 1.0 cm 0.6 - 1.0 / 0.6 - 0.9 cm LVPW Systolic Thickness 1.4 cm LV Relative Wall Thickness 0.4 RV Internal Dim ED PLAX 2.7 cm LVOT Diameter 1.9 cm LA Systolic Diameter LX 4.2 cm 3.0 - 4.0 / 2.7 - 3.8 cm LV Diastolic Volume MOD BP 61.3 cm??? 67 - 155 / 56 - 104 cm??? LV Systolic Volume MOD BP 17.9 cm??? 22 - 58 / 19 - 49 cm??? LV Ejection Fraction MOD BP 70.7 % >= 55 % LV Stroke Volume MOD BP 43.3 cm??? LV Diastolic Volume MOD 4C 58.4 cm??? LV Systolic Volume MOD 4C 14.3 cm??? LV Ejection Fraction MOD 4C 75.5 % LV Stroke Volume MOD 4C 44.1 cm??? LV Diastolic Length 4C 7.3 cm LV Systolic Length 4C 5.0 cm LV Diastolic Volume MOD 2C 56.0 cm??? LV Systolic Volume MOD 2C 20.7 cm??? LV Ejection Fraction MOD 2C 63.0 % LV Stroke Volume MOD 2C 35.3 cm??? LV Diastolic Length 2C 6.4 cm LV Systolic Length 2C 5.4 cm Ascending Aorta Diameter 2.4 cm M-MODE Aortic Root Diameter MM 2.6 cm LA Systolic Diameter MM 4.7 cm LA Ao Ratio MM 1.8 MV E Point Septal Separation 0.6 cm AV Cusp Separation MM 1.6 cm DOPPLER AV Peak Velocity 149.3 cm/s AV Peak Gradient 8.9 mmHg LVOT Peak Velocity 125.6 cm/s LVOT Peak Gradient 6.3 mmHg AV Area Cont Eq pk 2.5 cm??? MV Deceleration [place] 284.8 cm/s??? Mitral E Point Velocity 71.8 cm/s Mitral A Point Velocity 82.6 cm/s Mitral E to A Ratio 0.9 MV Deceleration Time 252.2 ms MV E' Velocity 8.5 cm/s Mitral E to MV E' Ratio 8.4 TR Peak Velocity 243.4 cm/s TR Peak Gradient 23.7 mmHg Right Ventricular Systolic Press 33.7 mmHg PV Peak Velocity 98.6 cm/s PV Peak Gradient 3.9 mmHg FINDINGS Left Ventricle Left ventricular ejection fraction is estimated at 55-60 %..Normal systolic function.left ventricular cavity size normal. Right Ventricle Normal right ventricular size and function. RVSP 34 mm Hg. bubble study with no clear shunting Right Atrium Mild right atrial dilatation. Left Atrium Mild left atrial dilatation. Mitral Valve Structurally normal mitral valve. No mitral stenosis. mild mitral regurgitation. Aortic Valve Trileaflet aortic valve. No aortic stenosis. No aortic regurgitation. Tricuspid Valve Mild tricuspid regurgitation.structurally normal tricuspid valve. Pulmonic Valve Structurally normal pulmonic valve. Pericardium Normal pericardium. No pericardial effusion. Aorta Normal size aortic root and proximal ascending aorta. CONCLUSIONS 1. Normal left ventricle size and systolic function 2. No evidence of shunt by bubble study 3. Mild mitral and tricuspid regurgitation Previewed by: Dr. Summer Mcgrath MD (Electronically Signed) Final Date: 16 Sep 2022 19:00
[2022-09-16 19:54] LABS: Glucose,Whole Blood 108 mg/dL (70-110)
[2022-09-16] MEDS: amLODIPine 2.5 MG TAB PO SCH (20:56)
[2022-09-16] MEDS ORDERED: FERROUS SULFATE 325 MG TAB PO SCH (21:00)
[2022-09-17 04:24] VITALS: BP 111/78; PULSE 66; TEMP 98
[2022-09-17 06:09] LABS: Glucose,Whole Blood 97 mg/dL (70-110)
--- NOTE | 2022-09-24 12:09 | P.DS ---
Providers Date of admission: 09/15/22 13:58 Attending physician: Endy Dillard MD Consults: 09/15/22 13:59 Consult Physician Routine Consulting Provider: Ml Alegre Consult Reason/Comments: CVA Do you want consulting provider notified?: Yes Primary care physician: Jerome Mcintyre [facility] Course: Diagnoses: Right face numbness, suspicious for TIA. Diabetes mellitus Hypertension History of Sheth's palsy History of proptosis and Graves' disease that she follows outpatient with [facility] course: This is a pleasant 52 years old female with past medical history of diabetes and hypertension and depression, also she has history of thyro-ocular disease/gravs's disease as she describes that she follows with [facility] but currently she is not on treatment. 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 Patient denies headache dizziness weakness or numbness. Patient evaluated by neurologist Slurred speech resolved and numbness significantly improved and no other new symptoms. She denies headache dizziness weakness or other numbness. No blurred vision or slurred speech. No chest pain dyspnea. No change in bowel habits. No fever. CTA of the head and neck: No evidence of dissection of the cervical internal carotid artery and vertebral arteries, no stenosis CT of the brain: No acute process. Bilateral proptosis We checked hemoglobin A1c and it is elevated 7.0%. TSH is normal, pt infomed she needs to continue with her DM Medication and follow up wiht her PCP for a better control of blood sugar and she verbalized understanding and acceptance MRI would have low yield so not recommended by neurologist . 2-D echo revealed normal left ventricular size and systolic function. EF is 55- 60%. Bubble study was negative for any shunting I discussed the case with the neurologist regarding her for discharge on 3 weeks of dual antiplatelet therapy and stop aspirin and continue with the Plavix, verbal and written instructions provided for the patient and she verbalized understanding and acceptance. Also risk of these medications included risk of bleeding or unexplained for her extensively and she verbalized understanding and acceptance Patient was cleared for discharge by neurologist Patient feels fine and able to go home today. Problems and management plan were discussed with the patient and he verbalized understanding and acceptance Patient was found stable and can be discharged home in guarded prognosis however he needs follow-up as an outpatient. Patient was instructed to follow up with PCP Dr. mcintyre within one week and patient agrees Patient was instructed to follow up with the neurologist Dr. Hernandez or in 1-2 weeks and she agrees. Also patient was instructed to follow up with catalogue and special products manager Dr. Mcgrath in one week and she agrees to call and make on appointments Physical exam Gen: patient is a AAOx3, no distress CVS: S1-S2, RRR, no murmur Lungs: B/L CTA, no wheezing Abdomen: soft, no distention, no tenderness, positive bowel sounds Extremity: no leg edema or induration Time spent more than 35 minutes Patient Condition at Discharge: Stable Plan - Discharge Summary Discharge Rx Participant: No New Discharge Prescriptions: New Clopidogrel [Plavix] 75 mg PO DAILY #30 tab Continue Pioglitazone [Actos] 45 mg PO DAILY Lisinopril-Hctz 20-12.5 mg [Zestoretic 20-12.5] 1 tab PO DAILY Gabapentin [Neurontin] 400 mg PO TID FLUoxetine HCL [PROzac] 40 mg PO DAILY Empagliflozin [Jardiance] 25 mg PO DAILY Meloxicam [Mobic] 15 mg PO DAILY@1500 Omeprazole [PriLOSEC] 20 mg PO BID Cholecalciferol [Vitamin D3 (25 Mcg = 1000 Iu)] 50 mcg PO DAILY Ferrous Sulfate [Iron] 325 mg PO HS Famotidine [Pepcid] 20 mg PO BID amLODIPine [Norvasc] 2.5 mg PO HS Insulin Degludec [Tresiba Flextouch U-100 Pen] 50 units SQ DAILY Semaglutide [Ozempic] 2 mg SQ TH Aspirin EC [Ecotrin Low Dose] 81 mg PO DAILY #21 tab Atorvastatin [Lipitor] 40 mg PO HS #30 tab Discharge Medication List Cholecalciferol [Vitamin D3 (25 Mcg = 1000 Iu)] 50 mcg PO DAILY 09/15/22 [History] Empagliflozin [Jardiance] 25 mg PO DAILY 09/15/22 [History] FLUoxetine HCL [PROzac] 40 mg PO DAILY 09/15/22 [History] Famotidine [Pepcid] 20 mg PO BID 09/15/22 [History] Ferrous Sulfate [Iron] 325 mg PO HS 09/15/22 [History] Gabapentin [Neurontin] 400 mg PO TID 09/15/22 [History] Insulin Degludec [Tresiba Flextouch U-100 Pen] 50 units SQ DAILY 09/15/22 [History] Lisinopril-Hctz 20-12.5 mg [Zestoretic 20-12.5] 1 tab PO DAILY 09/15/22 [History] Meloxicam [Mobic] 15 mg PO DAILY@1500 09/15/22 [History] Omeprazole [PriLOSEC] 20 mg PO BID 09/15/22 [History] Pioglitazone [Actos] 45 mg PO DAILY 09/15/22 [History] Semaglutide [Ozempic] 2 mg SQ TH 09/15/22 [History] amLODIPine [Norvasc] 2.5 mg PO HS 09/15/22 [History] Aspirin EC [Ecotrin Low Dose] 81 mg PO DAILY #21 tab 09/16/22 [Rx] Atorvastatin [Lipitor] 40 mg PO HS #30 tab 09/16/22 [Rx] Clopidogrel [Plavix] 75 mg PO DAILY #30 tab 09/16/22 [Rx] Follow up Appointment(s)/Referral(s): Summer Mcgrath MD [STAFF PHYSICIAN] - 1 Week Jl Girard MD [REFERRING] - 1 Week (neurologist ) James Hernandez MD [Medical Doctor] - 1 Week (neurologist ) Jerome Mcintyre MD [Primary Care Provider] - 1-2 days Activity/Diet/Wound Care/Special Instructions: heart healthy diet activity is restricted till you see your doctor continue with both aspirin and plavix for 21 days, then stop aspirin and continue Plavix. Discharge Disposition: HOME SELF-CARE
== END 2022-09-17 07:58 | disposition home or self-care (01) ==
LOC: EC 12:39 → INTOOBSV 13:58 → 3SCARD 13:58
PROVIDERS: ADMIT Internal Medicine; ATTEND Internal Medicine
DX: R20.0 Anesthesia of skin (principal); R47.81 Slurred speech; I10 Essential (primary) hypertension; F32.A Depression, unspecified; G51.0 Bell's palsy; E05.00 Thyrotoxicosis with diffuse goiter without thyrotoxic crisis or storm; E11.42 Type 2 diabetes mellitus with diabetic polyneuropathy; I08.1 Rheumatic disorders of both mitral and tricuspid valves; Z88.6 Allergy status to analgesic agent; Z88.5 Allergy status to narcotic agent; Z82.5 Family history of asthma and other chronic lower respiratory diseases; Z83.3 Family history of diabetes mellitus; Z79.82 Long term (current) use of aspirin; Z79.4 Long term (current) use of insulin; Z79.899 Other long term (current) drug therapy; Z86.73 Personal history of transient ischemic attack (TIA), and cerebral infarction without residual deficits
CPT/HCPCS: 96372 ×2; 96360; 96361; 99285; 36415; 94760; 93005; 93306; 97161; 97166; 92610; 80061; 80053; 84443; 82607; 82746; 85025; 85610; 85730; 83036; 71046; 70496; 70450; 70498; G0378 ×3; Q9967; J1644 ×2

== ENCOUNTER 2022-10-10 06:26 | Day surgery (SDC) | payer OTHER ==
[2022-10-09 08:34] VITALS: BMI 35.3
[2022-10-10] MEDS ORDERED: SODIUM CHLORIDE 0.9% 500 ML 500 ML IV ONE (06:43)
[2022-10-10 07:07] LABS: Glucose,Whole Blood 105 mg/dL (70-110)
[2022-10-10] MEDS ORDERED: fentaNYL (PF) 50 MCG/ML 2 ML AMP ONE (07:19)
[2022-10-10 07:20] VITALS: RESP 16; TEMP 98.5
[2022-10-10] MEDS: BENZOCAINE SPRAY 1 CAN TOPICAL ONE ×2 (07:24→07:29)
[2022-10-10] MEDS ORDERED: MIDAZOLAM 2 MG/2 ML VIAL IV ONE (07:29)
[2022-10-10] MEDS: fentaNYL (PF) 50 MCG/ML 2 ML AMP IV ONE ×2 (07:29→07:35)
--- NOTE | 2022-10-10 08:06 | ECHOT ---
TRANSESOPHAGEAL ECHOCARDIOGRAM INDICATION: CVA, rule out cardiac source of thromboembolic phenomenon. PROCEDURE NOTE: After obtaining informed consent, transesophageal echocardiogram was performed in left lateral position using an Omniplane probe. Local and IV sedation were obtained using Xylocaine spray, Versed, and fentanyl. The patient tolerated the procedure well without any obvious immediate complications. Total sedation time was 10 minutes. FINDINGS: 1. There is no intracardiac thrombus within the left atrial appendage, left atrium, right atrium, right ventricle. 2. Left ventricle has normal size and systolic function. 3. Aorta is free of significant atherosclerotic block. 4. Mitral valve is anatomically normal. There is mild mitral regurgitation noted. Tricuspid valve appears normal. There is mild tricuspid regurgitation. 5. Aortic valve is a 3-leaflet valve. There is no evidence of aortic stenosis or regurgitation. 6. Interatrial septum appears aneurysmally dilated. I did not find any evidence of [id number] shunt by color-flow Doppler or [id number] shunt by agitated saline contrast study. We injected the agitated saline contrast twice and even had a Valsalva maneuver without any evidence of shunting from right to left and after multiple and careful evaluation of the interatrial septum, I did not find any left- to-right shunt either. CONCLUSIONS: 1. No intracardiac source for thromboembolic cerebrovascular accident. 2. Aneurysmal interatrial septum. PLAN: I am going to do a loop recorder on her to see if she is having episodes of atrial fibrillation. MMODL / IJN: [id number] /
[2022-10-10 08:40] VITALS: BP 108/62; PULSE 62
== END 2022-10-10 09:01 | disposition home or self-care (01) ==
LOC: CATHCVL 06:26
PROVIDERS: ATTEND Internal Medicine Cardiovascular Disease
DX: I08.1 Rheumatic disorders of both mitral and tricuspid valves (principal); I25.3 Aneurysm of heart; I48.91 Unspecified atrial fibrillation
CPT/HCPCS: 93312; 93320; 93325; 81025; J2250; J3010

== ENCOUNTER → 2023-03-19 | Outpatient (CLI) | payer OTHER ==
--- NOTE | 2023-03-19 13:45 | P.PN ---
Subjective DATE: 03/19/2023 FOLLOW UP VISIT. Patient with obstructive sleep apnea hypopnea syndrome return to sleep center for follow-up visit. Information from previous visit have been reviewed. Patient is using PAP equipment every night for the whole night, getting PAP supplies in time. The patient does not have significant problems with the mask, PAP unit and humidification. [place] sleepiness scale is increased to 15. I checked information from PAP unit and discussed it with patient in details. PAP unit pressure 11 cm H2O. Usage is 98 % for more then 4 hours, average 5.9 hours per night. Leak is increased to 40 l/m. Apnea Hypopnea Index is 2.0, which is normal. MEDICATIONS:1. Plavix 75 mg once a day 2. Gabapentin 400 mg 3 times a day 3. Protonix 40 mg once a day 4. Amlodipine 2.5 mg once a day 5. Jardiance 25 mg once a day 6. Lipitor 80 mg once a day 7. Cymbalta 60 mg once a day 8. Lisinopril/hydrochlorothiazide 10-12.5 mg once a d ay During physical exam: GENERAL: A pleasant patient without any distress. VITAL SIGNS: BP 122/89, HR 92, RR 16 , weight 182, temperature 97.8, oxygen saturation at room air 96 % . HEENT: PERRLA, EOMI.low position of soft palate, Mall[place]ati 3 . NECK: Supple. No JVD. LUNGS: Clear to percussion and to auscultation. Good air exchange. No wheezing or rhonchi. HEART: S1, S2 regular. ABDOMEN: Soft and nontender.[] EXTREMITIES: No clubbing or cyanosis. SCHOOL BUS ATTENDANT: Awake, alert, and oriented x3. No focal deficit. Impressions: 1. Obstructive sleep apnea-hypopnea syndrome. Patient demonstrated great compliance with treatment, benefiting from treatment. 2. Mild obesity, body mass index 35.5, patient increased his weight 118 pounds comparing with previous visit. 3. Hypertension. 4. Diabetes mellitus with peripheral neuropathy. 5. History of sinusitis. 6. Acid reflux. 7. Seasonal ALLERGY. 8. Hyperlipidemia. 9. Status post lithotripsy. Plan: 1. Continue using PAP equipment every night for the whole night. 2. To change air filter at least 1-2 times per month. 3. PAP unit should stay lower then position of the head. 4. Advised patient to remove all remaining water from humidifier canister daily and make it dry after each usage. Refill canister with fresh distilled water before each usage. 5. Sleep hygiene with regular time in bed for at least 8 hours. 6. Precautions related to driving. No driving if feel any sleepiness. 7. I will maintain prescription for PAP supplies including mask, tube, filters. 8. Follow up visit in 6 months or earlier if patient has any problems. 9. Watching weight. Thank you very much for allowing me to participate in the management of your patient. Zane Gonzalez MD, PhD, FAASM. Diplomat of [place] [employer], Sleep Medicine Board by [place] [employer] [facility] [place]
== END ==
LOC: 3 N SLEEP 13:12
PROVIDERS: ATTEND Internal Medicine
DX: G47.33 Obstructive sleep apnea (adult) (pediatric) (principal); I10 Essential (primary) hypertension; E11.42 Type 2 diabetes mellitus with diabetic polyneuropathy; E66.9 Obesity, unspecified; E78.5 Hyperlipidemia, unspecified; J30.2 Other seasonal allergic rhinitis; K21.9 Gastro-esophageal reflux disease without esophagitis; Z68.35 Body mass index [BMI] 35.0-35.9, adult; Z79.899 Other long term (current) drug therapy; Z99.89 Dependence on other enabling machines and devices; Z98.890 Other specified postprocedural states; Z88.5 Allergy status to narcotic agent; Z88.8 Allergy status to other drugs, medicaments and biological substances; Z79.85 Long-term (current) use of injectable non-insulin antidiabetic drugs; Z79.4 Long term (current) use of insulin
CPT/HCPCS: 99212

== ENCOUNTER → 2023-10-08 | Outpatient (CLI) | payer OTHER ==
[2023-10-08 14:09] VITALS: BP 128/79; PULSE 92; RESP 16; TEMP 98.1
--- NOTE | 2023-10-08 14:18 | P.PROGSL ---
Subjective DATE: 10/08/2023 FOLLOW UP VISIT. Patient with obstructive sleep apnea hypopnea syndrome return to sleep center for follow-up visit. Information from previous visit have been reviewed. Patient complains of that he was CPAP unit stops working during the night while she is asleep and using it. The patient does not have significant problems with the mask, PAP unit pressure and humidification. [place] sleepiness scale is increased to 15. I checked information from PAP unit. PAP unit pressure 11 cm H2O. Usage is 73% of nights, average 4.8 hours per night. Leak is in very high range of 90.6 l/m. Apnea Hypopnea Index is 1.1, which is normal. MEDICATIONS: Please see below During physical exam: GENERAL: A pleasant patient without any distress. VITAL SIGNS: Please see below, weight 173 pounds, BMI 34.3. HEENT: PERRLA, EOMI.low position of soft palate, Mallapati 3 . NECK: Supple. No JVD. LUNGS: Clear to percussion and to auscultation. Good air exchange. No wheezing or rhonchi. HEART: S1, S2 regular. ABDOMEN: Soft and nontender.[] EXTREMITIES: No clubbing or cyanosis. DRY TRANSFER MAN: Awake, alert, and oriented x3. No focal deficit. Impressions: 1. Obstructive sleep apnea-hypopnea syndrome. Patient demonstrated borderline compliance with treatment, benefiting from treatment. CPAP unit stops working in the middle of sleep while patient using it. 2. Mild obesity, BMI 34.3, patient lost 9 pounds comparing with the previous visit. 3. Hypertension. 4. Diabetes mellitus with peripheral neuropathy. 5. Acid reflux. 6. History of sinusitis. 7. Hyperlipidemia. 8. Status post lithotripsy. 9. Allergy. Plan: 1. Continue using PAP equipment every night for the whole night. Prescription to replace CPAP unit, because CPAP unit stopped working in the middle of the night. 2. To change air filter at least 1-2 times per month. 3. PAP unit should stay lower then position of the head. 4. Advised patient to remove all remaining water from humidifier canister daily and make it dry after each usage. Refill canister with fresh distilled water before each usage. 5. Sleep hygiene with regular time in bed for at least 8 hours. 6. Precautions related to driving. No driving if feel any sleepiness. 7. I will maintain prescription for PAP supplies including mask, tube, filters. 8. Follow up visit in 1-3 months after getting new CPAP unit. 9. Watching and losing weight. Thank you very much for allowing me to participate in the management of your patient. Zane Gonzalez MD, PhD, FAASM. Diplomat of [employer], Sleep Medicine Board by [employer] Pre [employer] Wirer of [facility] [place] Objective - Vital Signs Vital Signs: Vital Signs Temp 98.1 F 10/08/23 13:56 Pulse 92 10/08/23 13:56 Resp 16 10/08/23 13:56 BP 128/79 10/08/23 13:56 Pulse Ox 99 10/08/23 13:56 FiO2 Intake & Output 10/07/23 10/08/23 10/08/23 18:59 06:59 18:59 Weight 78.471 kg Home Medications: Home Medications Medication Instructions Recorded Confirmed Type Cholecalciferol [Vitamin D3 (25 50 mcg PO DAILY 09/15/22 10/09/22 History Mcg = 1000 Iu)] Empagliflozin [Jardiance] 25 mg PO DAILY 09/15/22 10/08/23 History Famotidine [Pepcid] 20 mg PO BID 09/15/22 10/09/22 History Ferrous Sulfate [Iron] 325 mg PO HS 09/15/22 10/10/22 History Gabapentin [Neurontin] 400 mg PO TID 09/15/22 10/09/22 History Insulin Degludec [Tresiba 50 units SQ DAILY 09/15/22 10/10/22 History Flextouch U-100 Pen] Lisinopril-Hctz 20-12.5 mg 1 tab PO DAILY 09/15/22 10/08/23 History [Zestoretic 20-12.5] Meloxicam [Mobic] 15 mg PO DAILY@1500 09/15/22 10/10/22 History Pioglitazone [Actos] 45 mg PO DAILY 09/15/22 10/08/23 History Semaglutide [Ozempic] 2 mg SQ TH 09/15/22 10/08/23 History amLODIPine [Norvasc] 2.5 mg PO HS 09/15/22 10/10/22 History Atorvastatin [Lipitor] 40 mg PO HS #30 tab 09/16/22 10/08/23 Rx Clopidogrel [Plavix] 75 mg PO DAILY #30 tab 09/16/22 10/08/23 Rx Pantoprazole [Protonix] 40 mg PO DAILY 10/09/22 10/09/22 History Sertraline [Zoloft] 100 mg PO DAILY 10/09/22 10/09/22 History
== END ==
LOC: 3 N SLEEP 13:06
PROVIDERS: ATTEND Internal Medicine
DX: G47.33 Obstructive sleep apnea (adult) (pediatric) (principal); E66.9 Obesity, unspecified; I10 Essential (primary) hypertension; K21.9 Gastro-esophageal reflux disease without esophagitis; E78.5 Hyperlipidemia, unspecified; E11.42 Type 2 diabetes mellitus with diabetic polyneuropathy; Z99.89 Dependence on other enabling machines and devices; Z68.34 Body mass index [BMI] 34.0-34.9, adult; Z87.442 Personal history of urinary calculi; Z87.09 Personal history of other diseases of the respiratory system; Z88.5 Allergy status to narcotic agent; Z79.899 Other long term (current) drug therapy; Z79.85 Long-term (current) use of injectable non-insulin antidiabetic drugs; Z79.4 Long term (current) use of insulin; Z79.02 Long term (current) use of antithrombotics/antiplatelets
CPT/HCPCS: 99212

== ENCOUNTER → 2024-02-17 | Outpatient (CLI) | payer OTHER ==
[2024-02-17 17:17] VITALS: BP 113/80; PULSE 84; RESP 18; TEMP 97.7
--- NOTE | 2024-02-17 17:59 | P.PROGSL ---
Subjective DATE: 02/17/2024 FOLLOW UP VISIT. Patient with obstructive sleep apnea hypopnea syndrome return to sleep center for follow-up visit. This is first visit after patient received new CPAP unit. Information from previous visit have been reviewed. Patient is using PAP equipment every night for the whole night, getting PAP supplies in time. The patient does not have significant problems with the mask, PAP unit and humidification. [place] sleepiness scale is increased to 13. I checked information from PAP unit. PAP unit pressure 11 cm H2O. Usage is 80% for more then 4 hours, average 6.3 hours per night. Leak is 17 l/m, which is in acceptable range. Apnea Hypopnea Index is 2.5, which is normal. MEDICATIONS have been reviewed, please see below. During physical exam: GENERAL: A pleasant patient without any distress. VITAL SIGNS: Please see below, weight is 165.0 lbs. HEENT: PERRLA, EOMI.low position of soft palate, Mallapati 3. NECK: Supple. No JVD. LUNGS: Clear to percussion and to auscultation. Good air exchange. No wheezing or rhonchi. HEART: S1, S2 regular. ABDOMEN: Soft and nontender.[] EXTREMITIES: No clubbing or cyanosis. WINDOWS AND DOORS INSTALLER: Awake, alert, and oriented x3. No focal deficit. Impressions: 1. Obstructive sleep apnea-hypopnea syndrome. Patient demonstrated great compliance with treatment, benefiting from treatment. 2. Mild obesity, patient lost 8 pounds comparing with previous visit. 3. Hypertension. 4. Hyperlipidemia. 5. Acid reflux. 6. Diabetes mellitus with peripheral neuropathy. 7. Allergy. 8. Status post lithotripsy. Plan: 1. Continue using PAP equipment every night for the whole night. 2. Sleep hygiene with regular time in bed for at least 7.5-8 hours 3. PAP unit should stay lower then position of the head. 4. Advised patient to remove all remaining water from humidifier canister daily and make it dry after each usage. Refill canister with fresh distilled water before each usage. 5. Watching and continue losing weight. 6. Precautions related to driving. No driving if feel any sleepiness. 7. I will maintain prescription for PAP supplies including mask, tube, filters. 8. Follow up visit in 8 months or earlier if patient has any problems. Thank you very much for allowing me to participate in the management of your patient. Zane Gonzalez MD, PhD, FAASM. Diplomat of [employer], Sleep Medicine Board by [employer] G[employer] Maker of [facility] [place] Objective - Vital Signs Vital Signs: Vital Signs Temp 97.7 F 02/17/24 17:17 Pulse 84 02/17/24 17:17 Resp 18 02/17/24 17:17 BP 113/80 02/17/24 17:17 Pulse Ox 99 02/17/24 17:17 FiO2 Intake & Output 02/16/24 02/17/24 02/17/24 18:59 06:59 18:59 Weight 74.843 kg Home Medications: Home Medications Medication Instructions Recorded Confirmed Type Cholecalciferol [Vitamin D3 (25 50 mcg PO DAILY 09/15/22 10/09/22 History Mcg = 1000 Iu)] Empagliflozin [Jardiance] 25 mg PO DAILY 09/15/22 10/08/23 History Famotidine [Pepcid] 20 mg PO BID 09/15/22 10/09/22 History Ferrous Sulfate [Iron] 325 mg PO HS 09/15/22 10/10/22 History Gabapentin [Neurontin] 400 mg PO TID 09/15/22 10/09/22 History Insulin Degludec [Tresiba 50 units SQ DAILY 09/15/22 10/10/22 History Flextouch U-100 Pen] Lisinopril-Hctz 20-12.5 mg 1 tab PO DAILY 09/15/22 10/08/23 History [Zestoretic 20-12.5] Meloxicam [Mobic] 15 mg PO DAILY@1500 09/15/22 10/10/22 History Pioglitazone [Actos] 45 mg PO DAILY 09/15/22 10/08/23 History Semaglutide [Ozempic] 2 mg SQ TH 09/15/22 10/08/23 History amLODIPine [Norvasc] 2.5 mg PO HS 09/15/22 10/10/22 History Atorvastatin [Lipitor] 40 mg PO HS #30 tab 09/16/22 10/08/23 Rx Clopidogrel [Plavix] 75 mg PO DAILY #30 tab 09/16/22 10/08/23 Rx Pantoprazole [Protonix] 40 mg PO DAILY 10/09/22 10/09/22 History Sertraline [Zoloft] 100 mg PO DAILY 10/09/22 10/09/22 History
== END ==
LOC: 3 N SLEEP 16:06
PROVIDERS: ATTEND Internal Medicine
DX: G47.33 Obstructive sleep apnea (adult) (pediatric)
CPT/HCPCS: 99212

== ENCOUNTER → 2024-08-18 | Outpatient (CLI) | payer OTHER ==
[2024-08-19 02:12] LABS: HCT 44.5 % (37.2-46.3); HGB 14.3 g/dL (12.0-15.0); MCHC 32.1 g/dL (32.0-37.0); MCV 93.5 FL (80.0-97.0); NRBC Per 100 WBC 0 X 10*3/uL (0.00-0.01); Platelet Count 238 X 10*3/uL (140-440); RBC 4.76 X 10*6/uL (4.10-5.20); RDW 13.8 % (11.5-14.5)
[2024-08-19 02:31] LABS: BUN/Creat Ratio 20.17 Ratio (12.00-20.00); Blood Urea Nitrogen 12.1 mg/dL (9.0-27.0); Calcium 9.4 mg/dL (8.7-10.3); Carbon Dioxide 27.1 mmol/L (21.6-31.8); Chloride 105 mmol/L (96-109); Glucose 112 mg/dL (70-110); Potassium 4.4 mmol/L (3.5-5.5); Sodium 141 mmol/L (135-145)
== END | disposition home or self-care (01) ==
LOC: LABWHC1 14:58
PROVIDERS: ATTEND Internal Medicine Cardiovascular Disease
DX: R07.2 Precordial pain (principal)
CPT/HCPCS: 36415; 80048; 85027

== ENCOUNTER 2024-09-07 05:41 | Day surgery (SDC) | payer OTHER ==
[2024-09-06 08:53] VITALS: BMI 34.3
[2024-09-07] MEDS ORDERED: ALPRAZolam 0.5 MG TAB PO PRN (05:55)
[2024-09-07] MEDS ORDERED: NITROGLYCERIN SL TABS 0.4 MG TAB SUBLINGUAL PRN (05:55)
[2024-09-07] MEDS ORDERED: ALPRAZolam 0.25 MG TAB PO PRN (05:55)
[2024-09-07] MEDS: ASPIRIN 325 MG TAB PO STA (06:26)
[2024-09-07] MEDS: SODIUM CHLORIDE 0.9% 1,000 ML in EMPTY BAG 1 BAG IV SCH (06:26)
[2024-09-07 06:29] VITALS: RESP 16; TEMP 97.9
[2024-09-07] MEDS: IV FLUID CONTINUATION 1,000 ML IV ONE (06:32)
[2024-09-07 06:33] LABS: Glucose,Whole Blood 132 mg/dL (70-110)
[2024-09-07] MEDS: MIDAZOLAM 2 MG/2 ML VIAL IVP ONE (07:30)
[2024-09-07] MEDS: fentaNYL (PF) 50 MCG/1 ML VIAL IVP ONE (07:30)
[2024-09-07] MEDS: LIDOCAINE 1% INJ 10MG/ML (20 ML MDV) SQ ONE (07:30)
[2024-09-07] MEDS: HEPARIN SODIUM,PORCINE 10,000 UNIT in SODIUM CHLORIDE 0.9% 1,000 ML IRRIGATION PRN (07:33)
[2024-09-07] MEDS: VERAPAMIL SYRINGE (5 MG/10 ML) INTRAARTER ONE (07:33)
[2024-09-07] MEDS: HEPARIN SODIUM,PORCINE (1 ML) 2,500 UNIT in SODIUM CHLORIDE 0.9% 250 ML IRRIGATION PRN (07:33)
[2024-09-07] MEDS: IOPAMIDOL-370 100ML BTL INJ ONE (08:04)
[2024-09-07] MEDS ORDERED: RX INFO: IV CONTRAST WAS GIVEN 1 EACH MISC MISCELLANE PRN (08:09)
[2024-09-07] MEDS: SODIUM CHLORIDE 0.9% 1,000 ML IV SCH (08:30)
--- NOTE | 2024-09-07 09:19 | CC ---
CARDIAC CATHETERIZATION REPORT INDICATION: Unstable angina in a patient with multiple coronary risk factors. PROCEDURE NOTE: After obtaining informed consent, left heart catheterization and coronary angiogram were performed via the right femoral artery using standard Renan catheters. The patient tolerated the procedure well without any obvious immediate complications. A femoral angiogram was performed and decision was made for manual hemostasis. The patient received moderate conscious sedation. Total sedation time was 28 minutes. I initially attempted vascular access via the right radial artery, but was unsuccessful, hence I proceeded with the femoral catheterization. FINDINGS: 1. Hemodynamics: Left ventricular end-diastolic pressure is 20 mm. There is no significant gradient across the aortic valve. 2. Left ventriculogram: Left ventriculogram is not performed. 3. Angiographic data: a.Right coronary artery is a large dominant vessel that shows mild nonobstructive CAD. b.Left main coronary artery is a very short vessel, divides into circumflex coronary artery and left anterior descending coronary artery. I obtained most selective images of the LAD using a 3.5 Renan catheter. c.Circumflex coronary artery is calcified, shows mild nonobstructive disease. d.From mid to distal LAD is a very small caliber vessel, heavily calcified and has a long segment of stenosis that is about 50% to 70%, but is a fairly small caliber vessel. CONCLUSIONS: Three-vessel coronary artery disease as described above with moderate to severe obstructive disease involving mid LAD. PLAN: I reviewed angiographic data with the patient and decided on medical therapy given the long segment of stenosis and relatively small caliber vessels and a calcified vessel. I will add nitrates to her current medical regimen. MMODL / IJN: [id number] /
[2024-09-07 11:51] VITALS: PULSE 64
[2024-09-07 12:49] VITALS: BP 106/71
== END 2024-09-07 15:32 | disposition home or self-care (01) ==
LOC: CATHCVL 05:41
PROVIDERS: ATTEND Internal Medicine Cardiovascular Disease
DX: I25.110 Atherosclerotic heart disease of native coronary artery with unstable angina pectoris (principal); I10 Essential (primary) hypertension; E78.5 Hyperlipidemia, unspecified; E11.9 Type 2 diabetes mellitus without complications; Z88.5 Allergy status to narcotic agent; Z88.6 Allergy status to analgesic agent; Z79.02 Long term (current) use of antithrombotics/antiplatelets; Z79.899 Other long term (current) drug therapy
CPT/HCPCS: 93458; 99152; 99153; C1894 ×2; C1769; J2250; J1644 ×2; J2003; Q9967; J3010

== ENCOUNTER → 2024-10-26 | Outpatient (CLI) | payer OTHER ==
[2024-10-26 15:24] VITALS: BP 117/76; PULSE 84; RESP 16; TEMP 98
--- NOTE | 2024-10-26 16:02 | P.PROGSL ---
Subjective DATE: 10/26/2024 FOLLOW UP VISIT. Patient with obstructive sleep apnea hypopnea syndrome return to sleep center for follow-up visit. Information from previous visit have been reviewed. Patient is using PAP equipment every night for the whole night, getting PAP supplies in time. The patient does not have significant problems with the mask, PAP unit and humidification. [place] sleepiness scale is significantly increased to 16. I checked information from PAP unit. PAP unit pressure 11 cm H2O. Usage is 90% for more then 4 hours, average 6.5 hours per night. Leak is 35 l/m, which is in acceptable range. Apnea Hypopnea Index is 2.2, which is normal. MEDICATIONS have been reviewed, please see below. During physical exam: GENERAL: A pleasant patient without any distress. VITAL SIGNS: Please see below, weight is 173 lbs. HEENT: PERRLA, EOMI.low position of soft palate, Mallapati 3. NECK: Supple. No JVD. LUNGS: Clear to percussion and to auscultation. Good air exchange. No wheezing or rhonchi. HEART: S1, S2 regular. ABDOMEN: Soft and nontender.[] EXTREMITIES: No clubbing or cyanosis. CABLE INSTALLER: Awake, alert, and oriented x3. No focal deficit. Impressions: 1. Obstructive sleep apnea-hypopnea syndrome. Patient demonstrated great compliance with treatment, benefiting from treatment. 2. Mild obesity, BMI 34.3, patient increased weight on 8 pounds comparing with previous visit. 3. Hypertension. 4. Acid reflux. 5. Hyperlipidemia. 6. Diabetes mellitus with peripheral neuropathy. 7. Allergy. 8. Status post lithotripsy. Plan: 1. Continue using PAP equipment every night for the whole night. 2. Sleep hygiene with regular time in bed for at least 7.5-8 hours 3. PAP unit should stay lower then position of the head. 4. Advised patient to remove all remaining water from humidifier canister daily and make it dry after each usage. Refill canister with fresh distilled water before each usage. 5. Watching and losing weight. 6. Precautions related to driving. No driving if feel any sleepiness. 7. I will maintain prescription for PAP supplies including mask, tube, filters. 8. Follow up visit in 8 months or earlier if patient has any problems. Thank you very much for allowing me to participate in the management of your patient. Zane Gonzalez MD, PhD, FAASM. Diplomat of [employer], Sleep Medicine Board by [employer] Boiler House Supervisor of [facility] [place] Objective - Vital Signs Vital Signs: Vital Signs Temp 98 F 10/26/24 15:23 Pulse 84 10/26/24 15:23 Resp 16 10/26/24 15:23 BP 117/76 10/26/24 15:23 Pulse Ox 97 10/26/24 15:23 FiO2 Intake & Output 10/25/24 10/26/24 10/26/24 18:59 06:59 18:59 Weight 78.471 kg Home Medications: Home Medications Medication Instructions Recorded Confirmed Type Empagliflozin [Jardiance] 25 mg PO HS 09/15/22 10/26/24 History Ferrous Sulfate [Iron] 325 mg PO HS 09/15/22 10/26/24 History Pioglitazone [Actos] 45 mg PO HS 09/15/22 10/26/24 History Semaglutide [Ozempic] 2 mg SQ TU 09/15/22 10/26/24 History Pantoprazole [Protonix] 40 mg PO HS 10/09/22 10/26/24 History Clopidogrel [Plavix] 75 mg PO HS 09/06/24 10/26/24 History DULoxetine HCL [Cymbalta] 60 mg PO HS 09/06/24 09/07/24 History Dicyclomine [Bentyl] 20 mg PO HS 09/06/24 10/26/24 History Ferrous Gluconate 324 mg PO HS 09/06/24 10/26/24 History Lisinopril-Hctz 10-12.5 mg 1 tab PO HS 09/06/24 10/26/24 History [Zestoretic 10-12.5] Rosuvastatin Calcium 40 mg PO HS 09/06/24 10/26/24 History Isosorbide Mononitrate ER [Imdur] 60 mg PO DAILY #90 tab 09/07/24 10/26/24 Rx Nitroglycerin Sl Tabs [Nitrostat] 0.4 mg SUBLINGUAL Q5M PRN #100 tab 09/07/24 10/26/24 Rx
== END ==
LOC: 3 N SLEEP 14:50
PROVIDERS: ATTEND Internal Medicine
DX: G47.33 Obstructive sleep apnea (adult) (pediatric) (principal); E66.9 Obesity, unspecified; I10 Essential (primary) hypertension; K21.9 Gastro-esophageal reflux disease without esophagitis; E78.5 Hyperlipidemia, unspecified; E11.42 Type 2 diabetes mellitus with diabetic polyneuropathy; T78.40XA Allergy, unspecified, initial encounter; Z98.890 Other specified postprocedural states; Z68.34 Body mass index [BMI] 34.0-34.9, adult; Z99.89 Dependence on other enabling machines and devices; Z88.5 Allergy status to narcotic agent; Z88.6 Allergy status to analgesic agent
CPT/HCPCS: 99212